=== PATIENT | female | born 1945 | race Caucasian/White ===

== ENCOUNTER 2020-04-24 21:53 | Emergency (ER) | payer OTHER ==
[~2020-04-24] VITALS: Ht 162.6 cm; Wt 63.5 kg
[2020-04-24] MEDS ORDERED: NOVOLOG100 UNIT/M SUBQ (22:10)
[2020-04-24] MEDS ORDERED: LANTUS SUBQ (22:12)
[2020-04-24] MEDS ORDERED: PLAVIX 75 MG TA75 MG PO (22:32)
[2020-04-25 00:43] LABS: CALCIUM 9.5 mg/dL (8.5-10.1); CREATININE 1.1 mg/dL (0.6-1.0); POTASSIUM 4.6 mmol/L (3.5-5.1)
[2020-04-25 00:50] LABS: HEMATOCRIT 46.8 % (37.0-47.0); HEMOGLOBIN 15.3 gm/dL (12.0-15.0); MCH 33.2 pg (26.0-34.0); MCHC 32.7 g/dL (28.0-37.0); MCV 101.6 fL (80.0-100.0); RBC 4.6 mil/uL (4.20-5.00); RDW 13.2 % (10.5-14.5); WBC 7.8 thou/uL (4.0-11.0)
[2020-04-25 01:32] VITALS: BP 158/82
== END 2020-04-25 01:37 | disposition home or self-care (01) ==
LOC: ER 21:53
PROVIDERS: Emergency Medicine
DX: E11.649 Type 2 diabetes mellitus with hypoglycemia without coma (principal); R42 Dizziness and giddiness; I10 Essential (primary) hypertension; Z95.5 Presence of coronary angioplasty implant and graft; Z79.4 Long term (current) use of insulin; Z79.899 Other long term (current) drug therapy; Z88.8 Allergy status to other drugs, medicaments and biological substances